=== PATIENT | female | born 2000 | race African-American/Black ===

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

== ENCOUNTER 2025-08-26 15:05 | Emergency (ER) | payer OTHER, BC ==
[~2025-08-26] VITALS: Ht 167.6 cm; Wt 82.0 kg
[2025-08-26 15:06] VITALS: O2SAT 98
[2025-08-26 15:42] LABS: BASOPHILS % 0.7 % (0.0-2.0); EOSINOPHILS % 6.1 % (0.0-5.0); HEMATOCRIT. 35.0 % (36.0-48.0); HEMOGLOBIN. 11.9 g/dL (12.0-16.0); LYMPHOCYTES % 22.0 % (20.0-50.0); MEAN PLATELET VOLUME 7.8 fl (7.4-10.4); MONOCYTES % 4.5 % (2.0-8.0); NEUTROPHILS % 66.7 % (40.0-76.0); PLATELET 276 x1000/uL (130-400); RED BLOOD CELL COUNT 3.75 mill/uL (4.2-5.4); RED CELL DISTRIBUTION WIDTH 12.7 % (11.6-14.6)
[2025-08-26] MEDS: SODIUM CHLORIDE 0.9% 1,000 ML IV ONE (15:42)
[2025-08-26 15:54] LABS: UREA NITROGEN BLOOD 8 mg/dL (9-23)
[2025-08-26 15:55] LABS: CREATININE 0.7 mg/dL (0.6-1.0); ETHANOL BLOOD < 10 mg/dL (<10)
[2025-08-26 15:56] LABS: TROPONIN I HIGH SENSITIVITY < 4 ng/L (3.0-34)
[2025-08-26 15:57] LABS: ASPARTATE AMINOTRANSFERASE 13 IU/L (<34); BILIRUBIN DIRECT 0.2 mg/dL (<=3.0); BILIRUBIN TOTAL 0.6 mg/dL (0.1-1.0)
[2025-08-26 15:58] LABS: PROTEIN TOTAL 5.7 g/dL (6.0-8.3)
[2025-08-26 16:00] LABS: *AMPHETAMINES SCREEN URINE NEGATIVE (NEGATIVE); *BARBITURATES SCREEN URINE NEGATIVE (NEGATIVE); *BENZODIAZEPINES SCREEN URINE NEGATIVE (NEGATIVE); *COCAINE SCREEN URINE NEGATIVE (NEGATIVE); CANNABINOID URINE SCREEN PRESUMPTIVE POSITIVE (NEGATIVE); ECSTASY MDMA SCREEN URINE NEGATIVE (NEGATIVE); METHADONE URINE SCREEN NEGATIVE (NEGATIVE); OPIATES URINE SCREEN NEGATIVE (NEGATIVE); PHENCYCLIDINE URINE SCREEN NEGATIVE (NEGATIVE)
[2025-08-26] MEDS: ONDANSETRON HCL 4MG/2ML INJ IV ONE (16:01)
[2025-08-26 17:45] VITALS: BP 116/61; PULSE 77; RESP 16; TEMP 36.7; O2SAT 98
== END 2025-08-26 17:50 | disposition home or self-care (01) ==
LOC: ER 15:05 → CANBEDREQ 17:19 → ER 17:50
DX: R55 Syncope and collapse (principal); J45.909 Unspecified asthma, uncomplicated; F10.90 Alcohol use, unspecified, uncomplicated; R06.02 Shortness of breath; Z79.899 Other long term (current) drug therapy; Z88.0 Allergy status to penicillin; Z91.010 Allergy to peanuts; Y90.9 Presence of alcohol in blood, level not specified
CPT/HCPCS: 80076; 80305; 80048; 81025; 80320; 83880; 83690; 83735; 85025; 84484; 36415; 71045; 93005; 96361; 96374; 99285; J2405; J7030; G0480